=== PATIENT | male | born 1965 | race Caucasian/White ===

== ENCOUNTER 2016-11-21 18:52 | Emergency (ER) | payer BC | END 2016-11-21 23:04 | disposition home or self-care (01) | LOC: ER 18:52 | DX: L02.11 Cutaneous abscess of neck (principal); L03.221 Cellulitis of neck; D72.829 Elevated white blood cell count, unspecified | CPT/HCPCS: 36415; 96365; 96375; J1200; J3370 ==

== ENCOUNTER 2016-11-22 19:09 | Emergency (ER) | payer BC | END 2016-11-22 19:55 | disposition home or self-care (01) | LOC: ER 19:09 | DX: L02.11 Cutaneous abscess of neck (principal) ==